=== PATIENT | female | born 1980 | race Caucasian/White ===

== ENCOUNTER 2021-05-11 07:46 | Outpatient (CLI) | payer BC | END 2021-05-11 07:47 | disposition home or self-care (01) | LOC: CSHMAMMO 07:46 | PROVIDERS: ATTEND Family Medicine | DX: Z12.31 Encounter for screening mammogram for malignant neoplasm of breast (principal) | CPT/HCPCS: 77063; 77067 ==

== ENCOUNTER 2021-11-15 17:18 | Emergency (ER) | payer BC ==
[2021-11-15] MEDS ORDERED: Dicyclomine 20 MG/2 ML VIAL ONE (18:04)
[2021-11-15] MEDS ORDERED: Ondansetron PF 4 MG/2 ML Vial ONE (18:05)
[2021-11-15 18:15] LABS: Bilirubin 1+ (Negative); Blood, Urine 50 (Negative); Clarity Cloudy (Clear); Glucose, Urine (Dipstick) Normal (Negative); Ketone, Urine 150 mg/dL (Negative); Leukocyte 25 (Negative); Nitrite Positive (Negative); Protein, Urine (Dipstick) 30 mg/dl (Neg-Trace)
[2021-11-15 18:17] LABS: Pregnancy Test - Urine (BHCG) Negative (Negative); Pregu Control Background? CLEAR/WHITE (CLR/WHITE); Pregu Control Bar Appear? YES (CONTROL BAR)
[2021-11-15 18:18] LABS: #Basophils 0.1 10x3/uL (0.0-0.2); #Eosinphils 0.3 10x3/uL (0.0-0.5); #Monocytes 0.4 10x3/uL (0.0-1.1); #Neutrophils 2.8 10x3/uL (1.5-8.4); %Basophils 1.2 % (0.0-2.0); %Eosinophils 4.5 % (0.0-6.0); %Lymphocytes 45.2 % (18.0-47.0); %Monocytes 5.8 % (0.0-10.0); Hemoglobin 13.5 g/dL (12.0-15.5); Mean Corpuscular HGB CONC 35.2 g/dL (32.0-36.0); Mean Corpuscular Hemoglobin 31.8 pg (27.0-33.0); Mean Corpuscular Volume 90.4 fl (81.6-98.3); Mean Platelet Volume 9.4 fl (7.4-10.4); Platelet Count 306 10x3/uL (150-450); RBC Distribution Width 12.4 % (11.5-14.5); Red Blood Cell (RBC) Count 4.25 10x6/uL (3.90-5.03); White Blood Cell (WBC) Count 6.4 10x3/uL (3.5-10.5)
[2021-11-15 18:23] LABS: Bacteria/HPF 1+ HPF (None Seen); RBC/HPF 0-3 HPF (0-3); Squamous Epithelial 0-3 HPF (0-3); WBC/HPF 0-3 HPF (0-3)
[2021-11-15 18:33] LABS: Chloride 108 mmol/L (98-107); Potassium 3.7 mmol/L (3.5-5.1); Sodium 140 mmol/L (136-145)
[2021-11-15 18:34] LABS: ALT (SGPT) 25 U/L (8-55); AST (SGOT) 39 U/L (5-34); Albumin 4.2 g/dL (3.5-5.0); Alkaline Phosphatase 44 U/L (40-110); Anion Gap 13 mmol/L (10-20); BUN (Urea Nitrogen) 9 mg/dL (7.0-18.7); Bilirubin, Total 0.7 mg/dL (0.2-1.2); Calc. Creatinine Clearance 0 mL/min (70-130); Calcium 9.6 mg/dL (7.8-10.44); Carbon Dioxide 23 mmol/L (22-29); Estimated GFR 108; Glucose 79 mg/dL (70-105); Lipase 11 U/L (8-78); Protein, Total 7.2 g/dL (6.0-8.3)
== END 2021-11-15 19:39 | disposition home or self-care (01) ==
LOC: CSHERS 17:18
DX: N39.0 Urinary tract infection, site not specified (principal); R19.7 Diarrhea, unspecified; E03.9 Hypothyroidism, unspecified
CPT/HCPCS: 36415; 80053; 81003; 81015; 81025; 83605; 83690; 85025; 87086; 96361; 96372; 96374; J2405

== ENCOUNTER 2021-12-09 20:07 | Emergency (ER) | payer BC ==
[2021-12-09 21:30] LABS: Hemoglobin 12.6 g/dL (12.0-15.5); Mean Corpuscular Hemoglobin 31.3 pg (27.0-33.0); Mean Corpuscular Volume 92.1 fl (81.6-98.3); Mean Platelet Volume 9.4 fl (7.4-10.4); Platelet Count 280 10x3/uL (150-450); RBC Distribution Width 12.6 % (11.5-14.5); Red Blood Cell (RBC) Count 4.03 10x6/uL (3.90-5.03)
[2021-12-09 21:31] LABS: MDiff Complete? YES
[2021-12-09 21:35] LABS: BHCG - Serum Negative (NEGATIVE); Pregs Control Background? CLEAR/WHITE (CLR/WHITE); Pregs Control Bar Appear? YES (CONTROL BAR)
[2021-12-09] MEDS ORDERED: Ondansetron PF 4 MG/2 ML Vial ONE (21:35)
[2021-12-09] MEDS ORDERED: Morphine 4 MG/ML VIAL ONE (21:35)
[2021-12-09 21:42] LABS: ALT (SGPT) 40 U/L (8-55); AST (SGOT) 56 U/L (5-34); Alkaline Phosphatase 50 U/L (40-110); Anion Gap 10 mmol/L (10-20); BUN (Urea Nitrogen) 9 mg/dL (7.0-18.7); Bilirubin, Total 0.5 mg/dL (0.2-1.2); Calc. Creatinine Clearance 0 mL/min (70-130); Calcium 8.9 mg/dL (7.8-10.44); Carbon Dioxide 25 mmol/L (22-29); Chloride 108 mmol/L (98-107); Estimated GFR 101; Globulin 2.7 g/dL (2.4-3.5); Glucose 95 mg/dL (70-105); Potassium 4.1 mmol/L (3.5-5.1); Protein, Total 6.7 g/dL (6.0-8.3); Sodium 139 mmol/L (136-145)
[2021-12-09 22:01] LABS: Eosinophils 7 % (0-10); Lymphocytes 59 % (21-51); Monocytes 6 % (0-10); Neutrophil 27 % (42-75)
[2021-12-09 22:02] LABS: Platelet Morphology Comment Appears Adequate; RBC Morphology Normal; Reflex for Review?? YES
[2021-12-09 22:07] LABS: Bilirubin Neg (Negative); Blood, Urine Negative (Negative); Clarity Clear (Clear); Glucose, Urine (Dipstick) Normal (Negative); Ketone, Urine 5 mg/dL (Negative); Leukocyte Negative (Negative); Nitrite Negative (Negative); Protein, Urine (Dipstick) 30 mg/dl (Neg-Trace); pH, Urine 6.5 (5.0-9.0)
[2021-12-09 22:28] LABS: Bacteria/HPF Rare-Few HPF (None Seen); RBC/HPF 0-3 HPF (0-3); Squamous Epithelial 0-3 HPF (0-3); WBC/HPF 0-3 HPF (0-3)
== END 2021-12-09 23:25 | disposition home or self-care (01) ==
LOC: CSHERS 20:07
DX: R10.31 Right lower quadrant pain (principal); E03.9 Hypothyroidism, unspecified; G43.909 Migraine, unspecified, not intractable, without status migrainosus
CPT/HCPCS: 36415; 74177; 80053; 81003; 81015; 84703; 85025; 85060; 96374; 96375; J2270; J2405

== ENCOUNTER 2022-05-27 15:17 | Outpatient (CLI) | payer BC | END 2022-05-27 15:18 | disposition home or self-care (01) | LOC: CSHMAMMO 15:17 | PROVIDERS: ATTEND Family Medicine | DX: Z12.31 Encounter for screening mammogram for malignant neoplasm of breast (principal) | CPT/HCPCS: 77063; 77067 ==

== ENCOUNTER 2022-06-13 15:59 | Outpatient (CLI) | payer BC ==
[2022-06-13 17:12] LABS: Hemoglobin 13.1 g/dL (12.0-15.5); Mean Corpuscular HGB CONC 33.3 g/dL (32.0-36.0); Mean Corpuscular Volume 93.1 fl (81.6-98.3); Mean Platelet Volume 9.9 fl (7.4-10.4); Platelet Count 316 10x3/uL (150-450); RBC Distribution Width 12.4 % (11.5-14.5); Red Blood Cell (RBC) Count 4.22 10x6/uL (3.90-5.03); White Blood Cell (WBC) Count 6.9 10x3/uL (3.5-10.5)
[2022-06-13 17:22] LABS: BHCG - Serum Negative (NEGATIVE); Pregs Control Background? CLEAR/WHITE (CLR/WHITE); Pregs Control Bar Appear? YES (CONTROL BAR)
== END 2022-06-13 16:00 | disposition home or self-care (01) ==
LOC: CSHLAB 15:59
PROVIDERS: ATTEND Obstetrics & Gynecology
DX: Z01.812 Encounter for preprocedural laboratory examination (principal); D25.9 Leiomyoma of uterus, unspecified
CPT/HCPCS: 84703; 85027; 86850; 86900; 86901

== ENCOUNTER 2023-06-14 08:09 | Outpatient (CLI) | payer BC | END 2023-06-14 08:10 | disposition home or self-care (01) | LOC: CSHMAMMO 08:09 | PROVIDERS: ATTEND Family Medicine | DX: Z12.31 Encounter for screening mammogram for malignant neoplasm of breast (principal) | CPT/HCPCS: 77063; 77067 ==